=== PATIENT | male | born 1960 | race Caucasian/White ===

== ENCOUNTER 2020-11-19 14:34 | Outpatient (REF) | payer OTHER, MEDICARE, SELFPAY ==
[2020-11-19 15:50] LABS: Alanine Aminotransferase 7 U/L (0-40); Albumin Level 4.2 g/dL (3.5-5.0); Alkaline Phosphatase 74 U/L (39-117); Anion Gap 13 (12-20); Aspartate Amino Transferase 15 U/L (5-37); Bilirubin Total 0.5 mg/dL (0.0-1.0); Blood Urea Nitrogen 19 mg/dL (9-16); Calcium 9.2 mg/dL (8.4-10.2); Carbon Dioxide 28 mmol/L (22-29); Chloride 103 mmol/L (96-108); Cholesterol 152 mg/dL; Estimated Glomerular Filt Rate > 60; Glucose Random 89 mg/dL (60-115); HDL Cholesterol 33 mg/dL; LDL Cholesterol Calculated 106 mg/dl; Potassium 5.2 mmol/L (3.3-5.1); Sodium 139 mmol/L (135-145); Total Protein 7.1 g/dL (6.5-8.0); Triglycerides 68 mg/dL
[2020-11-19 16:12] LABS: Free T4 (Free Thyroxine) 0.96 ng/dL (0.71-1.85); Prostate Specific Antigen Scr 0.95 ng/mL (<0.05-4.0); Thyroid Stimulating Hormone 0.37 uIU/mL (0.32-4.0); Vitamin D 25-OH Total 26.8 ng/mL (>30)
== END 2020-11-19 14:35 | disposition home or self-care (01) ==
LOC: HO.LAB 14:34
PROVIDERS: PCP Nurse Practitioner Adult Health; Visit Provider Nurse Practitioner Adult Health
DX: E55.9 Vitamin D deficiency, unspecified (principal); I10 Essential (primary) hypertension; Z13.1 Encounter for screening for diabetes mellitus; Z13.220 Encounter for screening for lipoid disorders; Z12.5 Encounter for screening for malignant neoplasm of prostate
CPT/HCPCS: 36415; 80053; 80061; 82306; 84153; 84439; 84443

== ENCOUNTER 2020-12-19 13:45 | Outpatient (RCR) | payer OTHER, MEDICARE, SELFPAY ==
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
--- NOTE | 2020-10-22 17:15 | P.PNPS_ITS ---
TMS Daily Progress Note Daily TMS Progress Note Date of Service: 10/22/20 Week #: 1 Treatment #(10-05): 1 PHQ-9 Pre-Treatment (10-02): 23 PHQ-9 Most Recent (10-02): 23 Reviewed: TMS Tech Note Reviewed Verification: I have reviewed the TMS Data Reduction Technician Note and agree with the contents. The patient remains a candidate to continue TMS treatment per pro tocol.
--- NOTE | 2020-10-23 21:19 | HO.TMSDAILY2 ---
TMS Daily Progress Note Daily TMS Progress Note Date of Service: 10/23/20 Week #: 1 Treatment #(10-05): 2 PHQ-9 Pre-Treatment (10-02): 23 PHQ-9 Most Recent (10-02): 23 Reviewed: TMS Tech Note Reviewed Verification: I have reviewed the TMS Master Certified Rv Technician Note and agree with the contents. The patient remains a candidate to continue TMS treatment per protocol.
--- NOTE | 2020-10-24 22:39 | P.PNPS_ITS ---
TMS Daily Progress Note Daily TMS Progress Note Date of Service: 10/24/20 Week #: 1 Treatment #(10-05): 3 PHQ-9 Pre-Treatment (10-02): 23 PHQ-9 Most Recent (10-02): 23 Reviewed: TMS Tech Note Reviewed Verification: I have reviewed the TMS Enterprise Account Executive Note and agree with the contents. The patient remains a candidate to continue TMS treatment per pro tocol.
--- NOTE | 2020-10-25 23:10 | HO.TMSDAILY2 ---
TMS Daily Progress Note Daily TMS Progress Note Date of Service: 10/25/20 Week #: 1 Treatment #(10-05): 4 PHQ-9 Pre-Treatment (10-02): 23 PHQ-9 Most Recent (10-02): 23 Reviewed: TMS Tech Note Reviewed Verification: I have reviewed the TMS Vegetable Washing Machine Operator Note and agree with the contents. The patient remains a candidate to continue TMS treatment per protocol.
--- NOTE | 2020-10-25 23:12 | HO.TMSDAILY2 ---
TMS Daily Progress Note Daily TMS Progress Note Date of Service: 10/25/20 Week #: 1 Treatment #(10-05): 4 PHQ-9 Pre-Treatment (10-02): 23 PHQ-9 Most Recent (10-02): 23 Reviewed: TMS Tech Note Reviewed Verification: I have reviewed the TMS Account Developer Note and agree with the contents. The patient remains a candidate to continue TMS treatment per protocol.
--- NOTE | 2020-10-28 21:30 | HO.TMSDAILY2 ---
TMS Daily Progress Note Daily TMS Progress Note Date of Service: 10/28/20 Week #: 1 Treatment #(10-05): 5 PHQ-9 Pre-Treatment (10-02): 23 PHQ-9 Most Recent (10-02): 23 Reviewed: TMS Tech Note Reviewed Verification: I have reviewed the TMS Evaporator Operator Molasses Note and agree with the contents. The patient remains a candidate to continue TMS treatment per protocol.
--- NOTE | 2020-10-29 21:31 | P.PNPS_ITS ---
TMS Daily Progress Note Daily TMS Progress Note Date of Service: 10/29/20 Week #: 2 Treatment #(10-05): 6 PHQ-9 Pre-Treatment (10-02): 23 PHQ-9 Most Recent (10-02): 23 Reviewed: TMS Tech Note Reviewed Verification: I have reviewed the TMS Senior Construction Project Manager Note and agree with the contents. The patient remains a candidate to continue TMS treatment per pro tocol.
--- NOTE | 2020-10-30 22:05 | P.PNPS_ITS ---
TMS Daily Progress Note Daily TMS Progress Note Date of Service: 10/30/20 Week #: 2 Treatment #(10-05): 7 PHQ-9 Pre-Treatment (10-02): 23 PHQ-9 Most Recent (10-02): 23 Reviewed: TMS Tech Note Reviewed Verification: I have reviewed the TMS Duralumin Metalworker Note and agree with the contents. The patient remains a candidate to continue TMS treatment per pro tocol.
--- NOTE | 2020-10-31 22:43 | P.PNPS_ITS ---
TMS Daily Progress Note Daily TMS Progress Note Date of Service: 10/31/20 Week #: 2 Treatment #(10-05): 8 PHQ-9 Pre-Treatment (10-02): 23 PHQ-9 Most Recent (10-02): 23 Reviewed: TMS Tech Note Reviewed Verification: I have reviewed the TMS Cytogenetics Laboratory Manager Note and agree with the contents. The patient remains a candidate to continue TMS treatment per pro tocol.
--- NOTE | 2020-11-01 23:35 | HO.TMSDAILY2 ---
TMS Daily Progress Note Daily TMS Progress Note Date of Service: 11/01/20 Week #: 2 Treatment #(10-05): 9 PHQ-9 Pre-Treatment (10-02): 23 PHQ-9 Most Recent (10-02): 23 Reviewed: TMS Tech Note Reviewed Verification: I have reviewed the TMS Church Business Administrator Note and agree with the contents. The patient remains a candidate to continue TMS treatment per protocol.
--- NOTE | 2020-11-04 21:04 | P.PNPS_ITS ---
TMS Daily Progress Note Daily TMS Progress Note Date of Service: 11/04/20 Week #: 2 Treatment #(10-05): 10 PHQ-9 Pre-Treatment (10-02): 23 PHQ-9 Most Recent (10-02): 23 Reviewed: TMS Tech Note Reviewed Verification: I have reviewed the TMS Flange Machine Operator Note and agree with the contents. The patient remains a candidate to continue TMS treatment per pr otocol.
--- NOTE | 2020-11-05 16:35 | HO.TMSDAILY2 ---
TMS Daily Progress Note Daily TMS Progress Note Date of Service: 11/05/20 Week #: 3 Treatment #(10-05): 11 PHQ-9 Pre-Treatment (10-02): 23 PHQ-9 Most Recent (10-02): 23 Reviewed: TMS Tech Note Reviewed Verification: I have reviewed the TMS Director Of Emergency Nursing Note and agree with the contents. The patient remains a candidate to continue TMS treatment per protocol.
--- NOTE | 2020-11-06 20:55 | P.PNPS_ITS ---
TMS Daily Progress Note Daily TMS Progress Note Date of Service: 11/06/20 Week #: 3 Treatment #(10-05): 12 PHQ-9 Pre-Treatment (10-02): 23 PHQ-9 Most Recent (10-02): 23 Reviewed: TMS Tech Note Reviewed Verification: I have reviewed the TMS Organic Preparation Technician Note and agree with the contents. The patient remains a candidate to continue TMS treatment per pr otocol.
--- NOTE | 2020-11-07 23:10 | HO.TMSDAILY2 ---
TMS Daily Progress Note Daily TMS Progress Note Date of Service: 11/07/20 Week #: 3 Treatment #(10-05): 13 PHQ-9 Pre-Treatment (10-02): 23 PHQ-9 Most Recent (10-02): 23 Reviewed: TMS Tech Note Reviewed Verification: I have reviewed the TMS Investigative Writer Note and agree with the contents. The patient remains a candidate to continue TMS treatment per protocol.
--- NOTE | 2020-11-08 22:28 | HO.TMSDAILY2 ---
TMS Daily Progress Note Daily TMS Progress Note Date of Service: 11/08/20 Week #: 3 Treatment #(10-05): 14 PHQ-9 Pre-Treatment (10-02): 23 PHQ-9 Most Recent (10-02): 23 Reviewed: TMS Tech Note Reviewed Verification: I have reviewed the TMS Sales Associate Fishing Note and agree with the contents. The patient remains a candidate to continue TMS treatment per protocol.
--- NOTE | 2020-11-11 21:21 | P.PNPS_ITS ---
TMS Daily Progress Note Daily TMS Progress Note Date of Service: 11/11/20 Week #: 3 Treatment #(10-05): 15 PHQ-9 Pre-Treatment (10-02): 23 PHQ-9 Most Recent (10-02): 23 Reviewed: TMS Tech Note Reviewed Verification: I have reviewed the TMS Academic Support Coordinator Note and agree with the contents. The patient remains a candidate to continue TMS treatment per pr otocol.
--- NOTE | 2020-11-12 22:05 | P.PNPS_ITS ---
TMS Daily Progress Note Daily TMS Progress Note Date of Service: 11/12/20 Week #: 4 Treatment #(10-05): 16 PHQ-9 Pre-Treatment (10-02): 23 PHQ-9 Most Recent (10-02): 23 Reviewed: TMS Tech Note Reviewed Verification: I have reviewed the TMS Supervisor Concrete Stone Fabricating Note and agree with the contents. The patient remains a candidate to continue TMS treatment per pr otocol.
--- NOTE | 2020-11-13 22:27 | P.PNPS_ITS ---
TMS Daily Progress Note Daily TMS Progress Note Date of Service: 11/13/20 Week #: 4 Treatment #(10-05): 17 PHQ-9 Pre-Treatment (10-02): 23 PHQ-9 Most Recent (10-02): 23 Reviewed: TMS Tech Note Reviewed Verification: I have reviewed the TMS Teacher Selection Specialist Note and agree with the contents. The patient remains a candidate to continue TMS treatment per pr otocol.
--- NOTE | 2020-11-14 22:28 | P.PNPS_ITS ---
TMS Daily Progress Note Daily TMS Progress Note Date of Service: 11/14/20 Week #: 4 Treatment #(10-05): 18 PHQ-9 Pre-Treatment (10-02): 23 PHQ-9 Most Recent (10-02): 23 Reviewed: TMS Tech Note Reviewed Verification: I have reviewed the TMS High School Vice Principal Note and agree with the contents. The patient remains a candidate to continue TMS treatment per pr otocol.
--- NOTE | 2020-11-15 23:09 | HO.TMSDAILY2 ---
TMS Daily Progress Note Daily TMS Progress Note Date of Service: 11/15/20 Week #: 4 Treatment #(10-05): 19 PHQ-9 Pre-Treatment (10-02): 23 PHQ-9 Most Recent (10-02): 23 Reviewed: TMS Tech Note Reviewed Verification: I have reviewed the TMS Substance Abuse Counselor Note and agree with the contents. The patient remains a candidate to continue TMS treatment per protocol.
--- NOTE | 2020-11-18 22:59 | P.PNPS_ITS ---
TMS Daily Progress Note Daily TMS Progress Note Date of Service: 11/18/20 Week #: 4 Treatment #(10-05): 20 PHQ-9 Pre-Treatment (10-02): 23 PHQ-9 Most Recent (10-02): 23 Reviewed: TMS Tech Note Reviewed Verification: I have reviewed the TMS Epic Ambulatory Analyst Note and agree with the contents. The patient remains a candidate to continue TMS treatment per pr otocol.
--- NOTE | 2020-11-19 23:11 | P.PNPS_ITS ---
TMS Daily Progress Note Daily TMS Progress Note Date of Service: 11/19/20 Week #: 5 Treatment #(10-05): 21 PHQ-9 Pre-Treatment (10-02): 23 PHQ-9 Most Recent (10-02): 23 Reviewed: TMS Tech Note Reviewed Verification: I have reviewed the TMS Certified Public Accountant Note and agree with the contents. The patient remains a candidate to continue TMS treatment per pr otocol.
--- NOTE | 2020-11-20 22:44 | HO.TMSDAILY2 ---
TMS Daily Progress Note Daily TMS Progress Note Date of Service: 11/20/20 Week #: 5 Treatment #(10-05): 22 PHQ-9 Pre-Treatment (10-02): 23 PHQ-9 Most Recent (10-02): 23 Reviewed: TMS Tech Note Reviewed Verification: I have reviewed the TMS Intervention Nurse Note and agree with the contents. The patient remains a candidate to continue TMS treatment per protocol.
--- NOTE | 2020-11-22 23:43 | HO.TMSDAILY2 ---
TMS Daily Progress Note Daily TMS Progress Note Date of Service: 11/22/20 Week #: 5 Treatment #(10-05): 24 PHQ-9 Pre-Treatment (10-02): 23 PHQ-9 Most Recent (10-02): 23 Reviewed: TMS Tech Note Reviewed Verification: I have reviewed the TMS Workers' Compensation Magistrate Note and agree with the contents. The patient remains a candidate to continue TMS treatment per protocol.
--- NOTE | 2020-11-25 22:37 | HO.TMSDAILY2 ---
TMS Daily Progress Note Daily TMS Progress Note Date of Service: 11/25/20 Week #: 5 Treatment #(10-05): 25 PHQ-9 Pre-Treatment (10-02): 23 PHQ-9 Most Recent (10-02): 23 Reviewed: TMS Tech Note Reviewed Verification: I have reviewed the TMS Engineering Technical Specialist Note and agree with the contents. The patient remains a candidate to continue TMS treatment per protocol.
--- NOTE | 2020-11-26 22:30 | P.PNPS_ITS ---
TMS Daily Progress Note Daily TMS Progress Note Date of Service: 11/28/20 Week #: 5 Treatment #(10-05): 25 PHQ-9 Pre-Treatment (10-02): 23 PHQ-9 Most Recent (10-02): 23 Reviewed: TMS Tech Note Reviewed Verification: I have reviewed the TMS Firestopper Technician Note and agree with the contents. The patient remains a candidate to continue TMS treatment per pr otocol.
--- NOTE | 2020-11-27 22:09 | HO.TMSDAILY2 ---
TMS Daily Progress Note Daily TMS Progress Note Date of Service: 11/28/20 Week #: 6 Treatment #(10-05): 26 PHQ-9 Pre-Treatment (10-02): 23 PHQ-9 Most Recent (10-02): 23 Reviewed: TMS Tech Note Reviewed Verification: I have reviewed the TMS Repairer Shoe Sticks Note and agree with the contents. The patient remains a candidate to continue TMS treatment per protocol.
--- NOTE | 2020-11-28 22:10 | P.PNPS_ITS ---
TMS Daily Progress Note Daily TMS Progress Note Date of Service: 11/28/20 Week #: 6 Treatment #(10-05): 27 PHQ-9 Pre-Treatment (10-02): 23 PHQ-9 Most Recent (10-02): 23 Reviewed: TMS Tech Note Reviewed Verification: I have reviewed the TMS Model Photographers' Note and agree with the contents. The patient remains a candidate to continue TMS treatment per pr otocol.
--- NOTE | 2020-11-28 22:12 | HO.TMSDAILY2 ---
TMS Daily Progress Note Daily TMS Progress Note Date of Service: 11/27/20 Week #: 5 Treatment #(10-05): 26 PHQ-9 Pre-Treatment (10-02): 23 PHQ-9 Most Recent (10-02): 23 Reviewed: TMS Tech Note Reviewed Verification: I have reviewed the TMS Podopediatrician Note and agree with the contents. The patient remains a candidate to continue TMS treatment per protocol.
--- NOTE | 2020-11-28 22:13 | P.PNPS_ITS ---
TMS Daily Progress Note Daily TMS Progress Note Date of Service: 11/28/20 Week #: 6 Treatment #(10-05): 27 PHQ-9 Pre-Treatment (10-02): 23 PHQ-9 Most Recent (10-02): 23 Reviewed: TMS Tech Note Reviewed Verification: I have reviewed the TMS Quality Review Trainer Note and agree with the contents. The patient remains a candidate to continue TMS treatment per pr otocol.
--- NOTE | 2020-11-29 21:57 | P.PNPS_ITS ---
TMS Daily Progress Note Daily TMS Progress Note Date of Service: 11/29/20 Week #: 6 Treatment #(10-05): 28 PHQ-9 Pre-Treatment (10-02): 23 PHQ-9 Most Recent (10-02): 23 Reviewed: TMS Tech Note Reviewed Verification: I have reviewed the TMS Biology Professor Note and agree with the contents. The patient remains a candidate to continue TMS treatment per pr otocol.
--- NOTE | 2020-12-10 22:32 | P.PNPS_ITS ---
TMS Daily Progress Note Daily TMS Progress Note Date of Service: 12/10/20 Week #: 6 Treatment #(10-05): 30 PHQ-9 Pre-Treatment (10-02): 23 PHQ-9 Most Recent (10-02): 23 Reviewed: TMS Tech Note Reviewed Verification: I have reviewed the TMS Is Consultant Note and agree with the contents. The patient remains a candidate to continue TMS treatment per pr otocol. pt s/p quarantine
--- NOTE | 2020-12-11 22:34 | P.PNPS_ITS ---
TMS Daily Progress Note Daily TMS Progress Note Date of Service: 12/11/20 Week #: 6 Treatment #(10-05): 31 PHQ-9 Pre-Treatment (10-02): 23 PHQ-9 Most Recent (10-02): 23 Reviewed: TMS Tech Note Reviewed Verification: I have reviewed the TMS Strap Folding Machine Operator Note and agree with the contents. The patient remains a candidate to continue TMS treatment per pr otocol.
--- NOTE | 2020-12-12 22:58 | HO.TMSDAILY2 ---
TMS Daily Progress Note Daily TMS Progress Note Date of Service: 12/12/20 Week #: 7 Treatment #(10-05): 32 PHQ-9 Pre-Treatment (10-02): 23 PHQ-9 Most Recent (10-02): 23 Reviewed: TMS Tech Note Reviewed Verification: I have reviewed the TMS Fabric Sourcer Note and agree with the contents. The patient remains a candidate to continue TMS treatment per protocol.
--- NOTE | 2020-12-13 10:05 | P.PNPS_ITS ---
TMS Daily Progress Note Daily TMS Progress Note Date of Service: 12/16/20 Week #: 7 Treatment #(10-05): 33 PHQ-9 Pre-Treatment (10-02): 23 PHQ-9 Most Recent (10-02): 23 Reviewed: TMS Tech Note Reviewed Verification: I have reviewed the TMS Automobile Body Repairer Helper Note and agree with the contents. The patient remains a candidate to continue TMS treatment per pr otocol.
--- NOTE | 2020-12-16 21:47 | P.PNPS_ITS ---
TMS Daily Progress Note Daily TMS Progress Note Date of Service: 12/16/20 Week #: 8 Treatment #(10-05): 34 PHQ-9 Pre-Treatment (10-02): 23 PHQ-9 Most Recent (10-02): 23 Reviewed: TMS Tech Note Reviewed Verification: I have reviewed the TMS Reaming Machine Operator For Plastic Note and agree with the contents. The patient remains a candidate to continue TMS treatment per pr otocol.
--- NOTE | 2020-12-17 22:02 | P.PNPS_ITS ---
TMS Daily Progress Note Daily TMS Progress Note Date of Service: 12/17/20 Week #: 8 Treatment #(10-05): 35 PHQ-9 Pre-Treatment (10-02): 23 PHQ-9 Most Recent (10-02): 23 Reviewed: TMS Tech Note Reviewed Verification: I have reviewed the TMS Structural Steel Painter Note and agree with the contents. The patient remains a candidate to continue TMS treatment per pr otocol.
--- NOTE | 2020-12-19 21:50 | P.PNPS_ITS ---
TMS Daily Progress Note Daily TMS Progress Note Date of Service: 12/19/20 Week #: 8 Treatment #(10-05): 36 PHQ-9 Pre-Treatment (10-02): 23 PHQ-9 Most Recent (10-02): 23 Reviewed: TMS Tech Note Reviewed Verification: I have reviewed the TMS Destination Sign Repairer Note and agree with the contents. The patient remains a candidate to continue TMS treatment per pr otocol.
== END 2020-12-19 14:53 | disposition home or self-care (01) ==
LOC: HO.PTMS 13:45
PROVIDERS: Visit Provider Psychiatry & Neurology Psychiatry
DX: F33.2 Major depressive disorder, recurrent severe without psychotic features (principal); F41.1 Generalized anxiety disorder; F43.10 Post-traumatic stress disorder, unspecified
CPT/HCPCS: 90867; 90868